=== PATIENT | male | born 1930 | race Hispanic/Latino ===

== ENCOUNTER 2017-04-12 09:19 | Day surgery (SDC) | payer MEDICARE, OTHER ==
[2017-04-04 10:16] VITALS: BMI 31.2
[2017-04-12] MEDS ORDERED: Naloxone 0.4 mg/ml Inj (Adult) ONE (12:43)
[2017-04-12] MEDS ORDERED: Midazolam 2 MG/2 ML VIAL ONE (12:43)
[2017-04-12] MEDS ORDERED: Flumazenil 0.1 mg/ml Inj (5ml) IVP ONE (12:43)
[2017-04-12] MEDS ORDERED: Midazolam 2 MG/2 ML VIAL IV ONE ×2 (13:05→13:07)
[2017-04-12] MEDS ORDERED: Metoprolol 1 mg/ml Inj IVP ONE ×2 (13:18→13:19)
[2017-04-12 15:00] VITALS: PULSE 64; RESP 20; TEMP 98.2; O2SAT 97
[2017-04-12 15:33] VITALS: BP 125/59
--- NOTE | 2017-04-12 18:35 | CARD ---
APPROVED REPORT EKG Measurement Heart [id number] <Conclusion> Electronic ventricular pacemaker
--- NOTE | 2017-04-12 20:05 | CARD ---
APPROVED REPORT EXAM: Transesophageal echocardiogram with color flow Doppler and Synchronized Cardioversion. INDICATION Atrial Fibrillation Mitral Valve E/A ratio0.0 TDI E/Lateral E'0.0E/Medial E'0.0 Tricuspid Valve TR Peak [id number] [id number] Peak Gr.25mmHg [id number] Reason For Test : ARMAND and Cardioversion PROCEDURE After obtaining informed consent, patient underwent transesophageal echo in the Echo Lab. Type of Sedation : Conscious Sedation Sedation was administered by Dr. lester. Sedation was achieved with Versed and , Fentanyl 3 mg and 100 intravenously. Echo enhancement agent administered: Agitated Saline The ARMAND was performed without complications. Synchronized Cardioversion attempted: Successful Rhythm following Synchronized Cardioversion: Throughout the procedure, the blood pressure, pulse oximetry, cardiac rhythm, and rate were monitored. The patient tolerated the procedure without adverse effects. Recovery from conscious sedation was uneventful and vital signs were stable. LEFT VENTRICLE The left ventricle is normal size. There is mild concentric left ventricular hypertrophy. The left ventricular function is normal. EF-55-% ( a fib) There is normal LV segmental wall motion. A fib No left ventricle thrombus noted on this study. There is no ventricular septal defect visualized. There is no left ventricular aneurysm. There is no mass noted in the left ventricle. RIGHT VENTRICLE The right ventricle is mildly dilated. There is normal right ventricular wall thickness. The right ventricular systolic function is normal. ATRIA The left atrium is severely dilated. The right atrium is severely dilated.6.3 cm The interatrial septum is intact with no evidence for an atrial septal defect. AORTIC VALVE The aortic valve is mildly to moderately thickened. There is mild aortic regurgitation. There is no aortic valvular stenosis. There is no aortic valvular vegetation. MITRAL VALVE The mitral valve leaflets are thickened. There is no evidence of mitral valve prolapse. There is no mitral valve stenosis. Mitral regurgitation is mild to moderate. TRICUSPID VALVE The tricuspid valve leaflets display thickening. There is mild to moderate tricuspid regurgitation.RVSP-35 mmof hg. There is no tricuspid valve prolapse or vegetation. There is no tricuspid valve stenosis. PULMONIC VALVE The pulmonic valve is mildly thickened. There is mild pulmonic valvular regurgitation. There is no pulmonic valvular stenosis. GREAT VESSELS The aortic root is normal in size. The ascending aorta is normal in size. The pulmonary artery is normal. The IVC is normal in size and collapses >50% with inspiration. PERICARDIAL EFFUSION There is a trivial pericardial effusion. There is no pleural effusion. <Conclusion> The left ventricle is normal size. There is mild concentric left ventricular hypertrophy. The left ventricular function is normal. EF-55-% ( a fib). Dilated RA/LA/RV. There is mild aortic regurgitation. Mitral regurgitation is mild to moderate. There is mild to moderate tricuspid regurgitation.RVSP-35 mmof hg. There is no pleural effusion. 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 Smoke noted in LEWIS, but no thrombus no contraindication to cardioversion, 200 Joules Synchronized Cardioversion done pt. convertd to NSR. CC; .
== END 2017-04-12 16:00 | disposition home or self-care (01) ==
LOC: TEE 09:19
PROVIDERS: ATTEND Internal Medicine Cardiovascular Disease
DX: I48.91 Unspecified atrial fibrillation (principal); I10 Essential (primary) hypertension; I08.3 Combined rheumatic disorders of mitral, aortic and tricuspid valves
CPT/HCPCS: 92960; 93005; 93312; J2250; J3010; J7040

== ENCOUNTER 2018-08-21 07:23 | Outpatient (CLI) | payer MEDICARE, OTHER | END 2018-08-21 07:24 | disposition home or self-care (01) | LOC: CARDIO 07:23 ==